=== PATIENT | female | born 1965 | race Caucasian/White ===

== ENCOUNTER 2020-12-14 05:04 | Emergency (ER) | payer MEDICAID, SELFPAY ==
[~2020-12-14] VITALS: Ht 157.5 cm; Wt 45.5 kg
[~2020-12-14 05:04] MED LIST: ALBU2.5V; CIPR500T87 PO; DOCU-131 PO; HYDR-2214 PO; LITH300T30 PO; MIRT15TA3 PO; PHEN100C PO; PROM25AM6; RISP2TAB35 PO
[2020-12-14 05:09] VITALS: BP 147/78
--- NOTE | 2020-12-14 05:17 | NUR ---
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 PROVIDED WITH URINE CUP AND CLEAN CATCH INSTRUCTIONS. VERBALIZED UNDERSTANDING.
--- NOTE | 2020-12-14 07:50 | NUR ---
na x1
--- NOTE | 2020-12-14 09:23 | NUR ---
NIL X2
--- NOTE | 2020-12-14 09:49 | NUR ---
NIL X3
== END 2020-12-14 09:51 | disposition left against medical advice (07) ==
LOC: ED 09:45
DX: R10.9 Unspecified abdominal pain (principal); R11.2 Nausea with vomiting, unspecified; R05 Cough; Z53.21 Procedure and treatment not carried out due to patient leaving prior to being seen by health care provider